=== PATIENT | female | born 1965 | race Caucasian/White ===

== ENCOUNTER 2017-03-18 00:33 | Emergency (ER) | payer MEDICAID ==
[2017-03-18 00:53] VITALS: BP 131/75
[2017-03-18] MEDS ORDERED: Ketorolac 30 MG/ML SDV IM ONE (00:54)
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
== END 2017-03-18 01:10 | disposition home or self-care (01) ==
LOC: FB.ED 00:33
DX: S93.401D Sprain of unspecified ligament of right ankle, subsequent encounter (principal); J45.909 Unspecified asthma, uncomplicated; I25.2 Old myocardial infarction; F41.9 Anxiety disorder, unspecified; F32.9 Major depressive disorder, single episode, unspecified; E66.9 Obesity, unspecified; Z95.4 Presence of other heart-valve replacement; Z98.890 Other specified postprocedural states; Z90.49 Acquired absence of other specified parts of digestive tract; Z98.51 Tubal ligation status; Z79.01 Long term (current) use of anticoagulants; Z79.899 Other long term (current) drug therapy; Z88.8 Allergy status to other drugs, medicaments and biological substances; Z91.041 Radiographic dye allergy status; Z91.030 Bee allergy status; Z88.1 Allergy status to other antibiotic agents; V49.9XXA Car occupant (driver) (passenger) injured in unspecified traffic accident, initial encounter
CPT/HCPCS: 96372; 99283; J1885

== ENCOUNTER 2017-11-06 16:23 | Emergency (ER) | payer MEDICAID ==
[2017-11-06] MEDS ORDERED: Ketorolac 30 MG/ML SDV IVPUSH ONE (16:34)
[2017-11-06] MEDS ORDERED: Albuterol/Ipratropium 3.0-0.5 MG/3 ML Neb Soln NEB ONE (16:34)
[2017-11-06] MEDS ORDERED: Morphine 2 MG/ML Syringe IVPUSH ONE (17:20)
[2017-11-06] MEDS ORDERED: Ondansetron 4 MG/2 ML SDV IVPUSH ONE (17:21)
[2017-11-06] MEDS ORDERED: SUMAtriptan 6 MG/0.5 ML SDV SUBCUT STA (18:30)
[2017-11-06] MEDS ORDERED: diphenhydrAMINE 50 MG/ML SDV IVPUSH ONE (19:48)
[2017-11-06] MEDS ORDERED: hydrOXYzine HCl 50 MG/ML SDV IM ONE (21:36)
[2017-11-06 22:25] VITALS: BP 106/65
[2017-11-06] MEDS ORDERED: Ondansetron 4 MG Tab.DIS PO ONE (22:52)
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
--- NOTE | 2017-11-07 11:19 | CR ---
INDICATION: Cough. CHEST: PA and lateral views of the chest, 11/06/2017, were compared with 2015, and revealed a relatively poor inspiration, which emphasizes markings slightly. No definite active infiltrate or effusion was identified. However, there is noted mild bronchial wall cuffing in the lower lung castillo, which could be on the basis of active peribronchial disease, versus fibrosis, and should be correlated clinically. A mild dextroconvex scoliosis of the mid thoracic spine is again noted. Fusion of the lower cervical spine with plate is noted. The heart and mediastinum were unremarkable. IMPRESSION: No definite acute process, but there is noted bronchial wall cuffing which should be correlated clinically. MTDD
== END 2017-11-06 23:10 | disposition home or self-care (01) ==
LOC: FB.ED 16:23
DX: R05 Cough (principal); B34.9 Viral infection, unspecified; E86.0 Dehydration; R79.89 Other specified abnormal findings of blood chemistry; J45.909 Unspecified asthma, uncomplicated; Z91.041 Radiographic dye allergy status; Z91.030 Bee allergy status; Z88.8 Allergy status to other drugs, medicaments and biological substances; Z79.01 Long term (current) use of anticoagulants; Z79.899 Other long term (current) drug therapy; Z88.1 Allergy status to other antibiotic agents
CPT/HCPCS: 36415; 70450; 71046; 80048; 80305; 81001; 83605; 85025; 85610; 87804; 94640; 96372; 96374; 96375; 99285; J1200; J1885; J2270; J2405; J3030; J3410; J7620; A9270-GY

== ENCOUNTER 2018-02-08 19:52 | Emergency (ER) | payer MEDICAID ==
[2018-02-08] MEDS ORDERED: Ketorolac 60 MG/2 ML SDV IM ONE (22:05)
[2018-02-08] MEDS ORDERED: Doxycycline 100 MG Tab PO ONE (22:06)
[2018-02-08] MEDS ORDERED: Sulfamethoxazole/Trimethoprim 800-160 MG Tab PO ONE (22:06)
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
[2018-02-09 00:04] VITALS: BP 132/83
== END 2018-02-08 23:53 | disposition home or self-care (01) ==
LOC: FB.ED 19:52
DX: L03.314 Cellulitis of groin (principal); L03.319 Cellulitis of trunk, unspecified; I25.2 Old myocardial infarction; E66.9 Obesity, unspecified; Z88.1 Allergy status to other antibiotic agents; Z91.041 Radiographic dye allergy status; Z91.030 Bee allergy status; Z79.01 Long term (current) use of anticoagulants; Z79.899 Other long term (current) drug therapy
CPT/HCPCS: 36415; 85025; 85610; 86140; 96372; 99283; A9270; J1885

== ENCOUNTER 2018-12-04 17:47 | Observation (INO) | payer MEDICAID ==
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
[2018-12-04] MEDS ORDERED: Cyclobenzaprine 10 MG Tab PO ONE (20:06)
[2018-12-04] MEDS ORDERED: Acetaminophen 500 MG Tab PO ONE (20:07)
[2018-12-04] MEDS ORDERED: Acetaminophen 325 MG Tab PO PRN (22:15)
[2018-12-04] MEDS ORDERED: hydrOXYzine HCl 25 MG Tab PO PRN (22:17)
[2018-12-04] MEDS ORDERED: Metoprolol Succinate 25 MG Tab.ER PO ONE (22:45)
[2018-12-04] MEDS ORDERED: Melatonin 3 MG Tab PO ONE (22:45)
[2018-12-04] MEDS ORDERED: Pramipexole 0.25 MG Tab PO SCH (22:45)
[2018-12-04] MEDS ORDERED: ClonazePAM 1 MG Tab PO ONE (22:45)
[2018-12-04] MEDS ORDERED: Morphine 2 MG/ML Syringe ONE (22:51)
[2018-12-04] MEDS: Morphine 2 MG/ML Syringe IVPUSH PRN (22:55)
[2018-12-04] MEDS ORDERED: Sodium Chloride 0.9% 10 ML Syringe FLUSH PRN (22:55)
[2018-12-04] MEDS ORDERED: DULoxetine 60 MG Cap PO ONE (23:30)
[2018-12-05] MEDS: Morphine 2 MG/ML Syringe IVPUSH PRN (06:30)
[2018-12-05] MEDS ORDERED: Bisacodyl 5 MG Tab PO SCH (09:00)
[2018-12-05] MEDS ORDERED: Furosemide 20 MG Tab PO SCH (09:00)
[2018-12-05] MEDS ORDERED: ClonazePAM 0.5 MG Tab PO SCH (09:00)
[2018-12-05] MEDS ORDERED: DULoxetine 60 MG Cap PO SCH (09:00)
[2018-12-05] MEDS ORDERED: HYDROmorphone 2 MG/ML SDV IVPUSH ONE (09:05)
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
--- NOTE | 2018-12-05 11:13 | CR ---
INDICATION: Left hip pain, surgery 10/10/18. LEFT HIP: Frontal and lateral views of the left hip were obtained 12/04/18 and compared with 10/10/18, again revealing a complete hip prosthesis in place with good position and alignment and no evidence of a definite acute process. There may be some minimal lucency about the femoral component medially, not able to be discerned on the previous examination but likely present and most likely due to an appearance secondary to osteoporosis in that area. IMPRESSION: No definite acute abnormality of the left hip post BRI. MTDD
[2018-12-05 15:49] VITALS: BP 97/62
[2018-12-05] MEDS ORDERED: Melatonin 3 MG Tab PO SCH (21:00)
[2018-12-05] MEDS ORDERED: Metoprolol Succinate 25 MG Tab.ER PO SCH (21:00)
== END 2018-12-05 14:15 | disposition home or self-care (01) ==
LOC: FB.ED 17:47 → FB.MS 20:08
PROVIDERS: ADMIT Emergency Medicine; ATTEND Family Medicine
DX: M25.552 Pain in left hip (principal); Z96.642 Presence of left artificial hip joint; J45.909 Unspecified asthma, uncomplicated; E66.9 Obesity, unspecified; F41.1 Generalized anxiety disorder; G47.30 Sleep apnea, unspecified; F32.9 Major depressive disorder, single episode, unspecified; Z86.718 Personal history of other venous thrombosis and embolism; Z87.891 Personal history of nicotine dependence; Z79.01 Long term (current) use of anticoagulants; Z79.899 Other long term (current) drug therapy; Z88.0 Allergy status to penicillin; Z88.1 Allergy status to other antibiotic agents; Z88.8 Allergy status to other drugs, medicaments and biological substances; Z91.041 Radiographic dye allergy status; Z98.890 Other specified postprocedural states
CPT/HCPCS: 36415; 73502-LT; 85610; 96374; 96375; 96376; 97166-GO; 97535-GO; 99285-25; A9270-GY; G0378; J1170; J2270

== ENCOUNTER 2019-01-01 16:16 | Emergency (ER) | payer MEDICAID ==
[2019-01-01] MEDS ORDERED: Sodium Chloride 0.9% 1,000 ML IV ONE ×3 (17:13→19:38)
[2019-01-01] MEDS ORDERED: HYDROmorphone 2 MG/ML SDV IVPUSH ONE (17:15)
[2019-01-01] MEDS ORDERED: Ondansetron 4 MG/2 ML SDV IVPUSH ONE ×2 (17:15→20:18)
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
[2019-01-01] MEDS ORDERED: ceFAZolin 2 GM in Premix Bag 1 BAG IV ONE (20:17)
[2019-01-01] MEDS ORDERED: Heparin Sodium 10 Units/ML 5 ML Syringe FLUSH ONE ×2 (20:44→20:55)
[2019-01-01 21:45] VITALS: BP 121/61
== END 2019-01-01 22:08 | disposition home or self-care (01) ==
LOC: FB.ED 16:16
DX: E86.0 Dehydration (principal); R82.4 Acetonuria; M79.10 Myalgia, unspecified site; J45.909 Unspecified asthma, uncomplicated; Z88.1 Allergy status to other antibiotic agents; Z88.8 Allergy status to other drugs, medicaments and biological substances; Z79.01 Long term (current) use of anticoagulants; Z79.899 Other long term (current) drug therapy
CPT/HCPCS: 80053; 81001; 85025; 96361; 96365; 96375; 96376; 99283; J0690; J1170; J1642; J2405; J7030

== ENCOUNTER 2020-02-24 19:04 | Emergency (ER) | payer MEDICAID ==
[2020-02-24] MEDS ORDERED: Potassium Chloride 20 MEQ Tab.ER PO ONE ×3 (19:05→20:30)
[2020-02-24] MEDS ORDERED: Morphine 10 MG/ML SDV IM ONE (19:23)
[2020-02-24] MEDS ORDERED: hydrOXYzine HCl 50 MG/ML SDV IM ONE (19:24)
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
[2020-02-24] MEDS ORDERED: HYDROmorphone 2 MG/ML SDV IM ONE (20:26)
[2020-02-24 21:20] VITALS: BP 101/64; PULSE 107
== END 2020-02-24 21:30 | disposition home or self-care (01) ==
LOC: FB.ED 19:04
DX: R07.89 Other chest pain (principal); E78.00 Pure hypercholesterolemia, unspecified; I10 Essential (primary) hypertension; I25.2 Old myocardial infarction; J45.909 Unspecified asthma, uncomplicated; K21.9 Gastro-esophageal reflux disease without esophagitis; F41.9 Anxiety disorder, unspecified; F32.9 Major depressive disorder, single episode, unspecified; Z90.89 Acquired absence of other organs; Z90.49 Acquired absence of other specified parts of digestive tract; Z86.718 Personal history of other venous thrombosis and embolism; Z88.1 Allergy status to other antibiotic agents; Z91.041 Radiographic dye allergy status; Z88.8 Allergy status to other drugs, medicaments and biological substances; Z79.899 Other long term (current) drug therapy
CPT/HCPCS: 36415; 71046; 80048; 84484; 85025; 93005; 96372; 99285; A9270; J1170; J2270; J3410